=== PATIENT | male | born 1935 | race Caucasian/White ===

== ENCOUNTER → 2019-01-14 | Outpatient (CLI) | payer MEDICARE ==
[~2019-01-14] MED LIST: ADVAIR 250-501 EACH INH; ASPIRIN EC81 M1 PO; COMBIVENT RESPIM4 GM INH; FISH OIL + D31 EACH PO; IBUPROFEN200 M2 PO; LISINOPRIL10 MG PO; LORTAB 5 MG/5001 TA1 PO; MECLIZINE HCL12.5 MG; MULTIVITAMINS PO; RANITIDINE 150150 M1 PO; TAMSULOSIN HCL0.4 M1 PO; VITAMIN B-12100 MC1 PO; VITAMIN E400 UNIT PO; WELCHOL 625 MG625 M1 PO
== END ==
LOC: RAD 12:58
DX: J44.9 Chronic obstructive pulmonary disease, unspecified (principal)